=== PATIENT | female | born 1990 | race African-American/Black ===

== ENCOUNTER 2022-04-06 06:04 | Day surgery (SDC) | payer BC ==
[2022-04-05 10:05] VITALS: BMI 30.7
[2022-04-06] MEDS ORDERED: Propofol 1,000 MG/100 ML VIAL IV ONE (06:25)
[2022-04-06] MEDS ORDERED: fentaNYL PF 100 MCG/2 ML SYRINGE ONE (06:25)
[2022-04-06] MEDS ORDERED: Vancomycin (BATCH) 1.5 GRAM/300 ML BAG ONE (06:41)
[2022-04-06] MEDS ORDERED: Lidocaine 2% 6 ML SYR ONE (06:45)
[2022-04-06] MEDS ORDERED: Gentamicin 80 MG/2 ML VIAL ONE (06:47)
[2022-04-06] MEDS ORDERED: Lidocaine 1% (PF) 30 ML VIAL ONE (06:47)
[2022-04-06] MEDS ORDERED: CEFAZOLIN 1 GM VIAL ONE (06:47)
[2022-04-06 07:20] LABS: Pregnancy Test - Urine (BHCG) Negative (Negative); Pregu Control Bar Appear? YES (CONTROL BAR); Specific Gravity 1.009 (1.002-1.036)
[2022-04-06 07:21] LABS: Pregu Control Background? CLEAR/WHITE (CLR/WHITE)
[2022-04-06] MEDS ORDERED: PROPOFOL 200 MG/20 ML VIAL ONE (07:34)
[2022-04-06] MEDS ORDERED: Ondansetron PF 4 MG/2 ML Vial ONE ×2 (07:34→08:02)
[2022-04-06] MEDS ORDERED: Iopamidol 370 76% 100 ML VIAL ONE ×2 (09:43→14:57)
== END 2022-04-06 13:11 | disposition home or self-care (01) ==
LOC: SDC 06:04
PROVIDERS: ATTEND Internal Medicine Cardiovascular Disease
PROC: 02HK3KZ Insertion of Defibrillator Lead into Right Ventricle, Percutaneous Approach (ICD-10-PCS; principal; 2022-04-06)
PROC: 02H63KZ Insertion of Defibrillator Lead into Right Atrium, Percutaneous Approach (ICD-10-PCS; principal; 2022-04-06)
PROC: 0JH608Z Insertion of Defibrillator Generator into Chest Subcutaneous Tissue and Fascia, Open Approach (ICD-10-PCS; principal; 2022-04-06)
DX: I50.22 Chronic systolic (congestive) heart failure (principal); I42.8 Other cardiomyopathies; I47.20 Ventricular tachycardia, unspecified; Z79.01 Long term (current) use of anticoagulants; Z79.899 Other long term (current) drug therapy
CPT/HCPCS: 33249; 71045; 81025; 93005; C1721; C1777; C1898; J0690; J1580; J2001; J2405; J2704; J3370; Q9967